=== PATIENT | female | born 1940 | race Caucasian/White ===

== ENCOUNTER → 2018-10-12 | Outpatient (CLI) | payer MEDICARE | END | disposition home or self-care (01) | LOC: PCVCCLINIC 11:34 | PROVIDERS: ATTEND Internal Medicine Cardiovascular Disease | DX: I48.91 Unspecified atrial fibrillation (principal); E78.5 Hyperlipidemia, unspecified; R00.2 Palpitations; R53.83 Other fatigue | CPT/HCPCS: 36415; 80061; 93005; G0463 ==

== ENCOUNTER → 2018-10-13 | Outpatient (CLI) | payer MEDICARE ==
[~2018-10-13] MED LIST: REGADENOSON 0.4 MG/5 ML DISP.SYRIN. IV ONE
--- NOTE | 2018-10-13 16:00 | PCVCIMAG ---
APPROVED REPORT Study performed: 10/13/2018 10:51:01 EXAM: Comprehensive 2D, Doppler, and color-flow Echocardiogram Patient Location: Echo lab Status: routine BSA: 1.70 HR: 81 bpmBP: 150/82 mmHg Rhythm: Bigeminy PACs and Atrial Fibrillation Other Information Study Quality: Adequate Indications Atrial Fibrillation Palpitations 2D Dimensions IVSd: 8.43 (7-11mm)LVOT Diam: 19.38 (18-24mm) LVDd: 42.61 mm PWd: 7.74 (7-11mm)Ascending Ao: 30.47 (22-36mm) LVDs: 31.40 (25-40mm) Left Atrium: 32.90 (27-40mm) Aortic Root: 29.65 mm LV Single Plane 4CH: 58.22 % LV Single Plane 2CH: 60.92 % Volumes Left Atrial Volume (Systole) Single Plane 4CH: 52.79 mLSingle Plane 2CH: 64.68 mL LA ESV Index: 38.00 mL/m2 Aortic Valve AoV Peak Francisco.: 1.38 m/s AO Peak Gr.: 8.07 mmHgLVOT Max P.62 mmHg LVOT Max V: 0.90 m/s TAO Vmax: 1.92 cm2 AI Vmax: 3.63 m/s AI Childress: 1.89 m/s2 AI PHT: 557.98 ms Pulmonary Valve PV Peak Francisco.: 0.71 m/sPV Peak Gr.: 2.02 mmHg Tricuspid Valve TR Peak Francisco.: 2.46 m/s TR Peak Gr.: 24.38 mmHg Left Ventricle The left ventricle is normal size. There is normal LV segmental wall motion. There is normal left ventricular wall thickness. Left ventricular systolic function is normal. The left ventricular ejection fraction is within the normal range. LVEF is 55-60%. This study is not technically sufficient to allow evaluation of the LV diastolic function due to atrial fibrillation. Right Ventricle The right ventricle is normal size. The right ventricular systolic function is normal. Atria Left atrium is mildly dilated. Right atrium is mildly dilated. Aortic Valve Moderate aortic valve sclerosis. Mild to moderate aortic regurgitation. There is no aortic valvular stenosis. Mitral Valve The mitral valve is normal in structure. Mild to moderate mitral regurgitation. No evidence of mitral valve stenosis. Tricuspid Valve The tricuspid valve is normal in structure. Mild tricuspid regurgitation with PAP of 31 mmHg. Pulmonic Valve The pulmonary valve is normal in structure. Mild pulmonic regurgitation. Great Vessels The aortic root is normal in size. IVC is normal in size and collapses >50% with inspiration. Pericardium There is no pericardial effusion. There is no pleural effusion. <Conclusion> The left ventricle is normal size. There is normal left ventricular wall thickness. Left ventricular systolic function is normal. The right ventricle is normal size. Left atrium is mildly dilated. Right atrium is mildly dilated. Moderate aortic valve sclerosis. Mild to moderate aortic regurgitation. Mild to moderate mitral regurgitation. Mild tricuspid regurgitation with PAP of 31 mmHg.
--- NOTE | 2018-10-15 09:49 | PCVCIMAG ---
APPROVED REPORT Imaging Protocol: Rest Tc-99m/Stress Tc-99m 1 day Study performed: 10/13/2018 12:02:58 Indication: Atrial Fibrillation, Chest pain, Fatigue, Palpitations Patient Location: Out-Patient Stress Nurse: Gloria Higgins RN, Sushma Manriquez RN [place] Tech:KEVIN Ayala Ht: 5 ft 3 in Wt: 148 lbs BSA: 1.70 m2 HR: 80 bpm BP: 160/71 mmHg BMI: 26.21 Rhythm: Sinus Rhythm with frequent PACs, bursts of tachy runs Medical History Medical History: Atrial Fibrillation Medications: Metoprolol (last night) Xarelto, Remeron Allergies: No known drug allergies Cardiac Risk Factors: Age Pretest Chest Pain Characteristics: Some chest pain Exercise History: Sedentary Resting Data Rest SPECT myocardial perfusion imaging was performed in supine position 45 minutes following the intravenous injection of 11.4 mCi of Tc-99m Sestamibi. Time of rest injection: 1130 Date: 10/13/2018 Administration Route: IV Administration Site: Right AC Pharmacologic Stress Pharmacologic stress test was performed by injecting Regadenoson 0.4 mg IV push over 10-15 seconds immediately followed by the intravenous injection of 31.5 mCi of Tc-99m Sestamibi. Time of stress injection: 1230 Date: 10/13/2018 Administration Route: IV Administration Site: Right AC Gated Stress SPECT was performed 45 minutes after stress injection. The images were gated to evaluate regional wall motion and calculate left ventricular ejection fraction. Stress Test Details Stress Test: Pharmacologic stress testing performed using 0.4 mg of regadenoson per 5 mL given IV over 10 seconds. Reason for pharmacologic stress test: physical limitation, Atrial Fibrillation. HRMax Heart Rate (APMHR): 140 bpm Resting HR: 80 bpmTarget HR (85% APMHR): 119 bpm Max HR Achieved: 144 bpm % of APMHR: 102 Recovery HR: 88 bpm BP Resting BP: 160/71 mmHg Max BP: 171/79 mmHg Recovery BP: 147/70 mmHg ECG Resting ECG: Sinus Rhythm with frequent PACs, bursts of tachy runs Stress ECG: Atrial Fibrillation ST Change: Non-ischemic Arrhythmia: Atrial fibrillation Recovery ECG: Sinus Rhythm, Sinus Bradycardia, Sinus Rhythm, normal EKG Clinical Reason for Termination: Completed protocol Stress Symptoms: Dyspnea, Lightheaded Exercise duration: 0 min 55 sec Symptoms resolved with caffeine. Study Quality Study: Good Artifact: Mild Breast artifact Study Data Post stress, the left ventricular ejection was 69%.. SSS: 1 SRS: 2 SDS: 0 Perfusion There is a small area of mildly reduced uptake in the apical segment of the anterior wall which is seen on the stress images as well as the resting images. This area thickens and moves normally and is most consistent with attenuation artifact. Wall Motion Normal left ventricular wall motion. Nuclear Conclusion ECG Findings: negative for ischemia Clinical Findings: non-diagnostic Nuclear Findings: negative for ischemia Exercise Capacity: not assessed Left Ventricular Function: normal Risk Study: low This study is of low probability for inducible ischemia or prior infarct. Normal global and segmental LV systolic function. Artifact: Mild Breast artifact
== END | disposition home or self-care (01) ==
LOC: PCVCIMAG 12:00
PROVIDERS: ATTEND Internal Medicine Cardiovascular Disease
DX: I08.3 Combined rheumatic disorders of mitral, aortic and tricuspid valves (principal); I48.91 Unspecified atrial fibrillation; R00.2 Palpitations; R53.83 Other fatigue; E78.5 Hyperlipidemia, unspecified; Z82.49 Family history of ischemic heart disease and other diseases of the circulatory system; Z72.89 Other problems related to lifestyle
CPT/HCPCS: 78452; 93017; 93306; A9500; J2785

== ENCOUNTER → 2018-10-20 | Outpatient (CLI) | payer MEDICARE | END | disposition home or self-care (01) | LOC: PCVCCLINIC 15:24 | PROVIDERS: ATTEND Internal Medicine Cardiovascular Disease | DX: I48.91 Unspecified atrial fibrillation (principal); I35.1 Nonrheumatic aortic (valve) insufficiency; K21.9 Gastro-esophageal reflux disease without esophagitis; M54.40 Lumbago with sciatica, unspecified side; E78.5 Hyperlipidemia, unspecified | CPT/HCPCS: 93005; G0463 ==